=== PATIENT | female | born 1940 | race Hispanic/Latino ===

== ENCOUNTER 2018-08-26 15:41 | Inpatient (IN) | payer MEDICARE, MEDICAID ==
[2018-08-26 15:58] VITALS: BMI 20.2
--- NOTE | 2018-08-26 16:50 | ED PDOC ---
Arrival/HPI - General Chief Complaint: Lower Extremity Problem/Injury Time Seen by Provider: 08/26/18 16:11 - History of Present Illness Narrative History of Present Illness (Text): 78 y/o F c PMHx CHF, COPD p/w bilateral pedal edema x 1 week. States no chest pain, has dyspnea, but has baseline dyspnea due to COPD as well. Denies fever, chills, body aches, vomiting, diarrhea. PMD Nigel Robledo Past Medical History - Cardiac Hx Hypertension: Yes Hx Pacemaker: Yes - Pulmonary Hx Chronic Obstructive Pulmonary Disease (COPD): Yes Hx Pneumonia: Yes - Psychiatric Hx Substance Use: No - Anesthesia Hx Anesthesia: No Hx Anesthesia Reactions: No Hx Malignant Hyperthermia: No Family/Social History Family/Social History: No Known Family HX Smoking Status: Never Smoked Hx Alcohol Use: No Hx Substance Use: No Allergies/Home Meds Allergies/Adverse Reactions: Allergies No Known Allergies Allergy (Verified 08/26/18 15:54) Review of Systems - Physician Review All systems were reviewed & negative as marked: Yes - Review of Systems Constitutional: absent: Fevers Cardiovascular: absent: Chest Pain Physical Exam - Physical Exam Narrative Physical Exam (Text): Gen: NAD Head: NC/AT Eyes: PERRL ENT: MMM Neck: Supple. Chest: No tenderness CV: Regular rate Lungs: Bibasilar crackles Abd: Soft, NT Back: No CVA tenderness Extremities: Pitting edema of bilateral lower legs Skin: No rash Neuro: Alert, no focal deficit Vital Signs Temp Pulse Resp BP Pulse Ox 08/26/18 15:56 97.9 F 116 H 20 120/73 100 Medical Decision Making ED Course and Treatment: EKG 113 bpm, ventricularly paced rhythm. IMPRESSION: New right pleural effusion, otherwise no significant abnormalities/interval changes. Patient also with coaguloatphy, states had high INR last week at Dr. Manning's office, attempted to stop dose and resume but today, continues to be high. No bleeding. Dr. Manning accepts patient to her service. Consult placed for Dr. Robledo. - RAD Interpretation Radiology Orders: 08/26/18 16:38 CHEST PORTABLE [RAD] Stat Disposition/Present on Arrival - Present on Arrival Any Indicators Present on Arrival: No History of DVT/PE: No History of Uncontrolled Diabetes: No Urinary Catheter: No History of Decub. Ulcer: No History Surgical Site Infection Following: None - Disposition Have Diagnosis and Disposition been Completed?: Yes Diagnosis: CHF exacerbation, Coagulopathy Disposition: HOSPITALIZED Disposition Time: 18:42 Patient Plan: Admission, Telemetry Condition: GUARDED Discharge Instructions (ExitCare): Heart Failure (ED) Forms: [employer] ([place])
[2018-08-26 17:22] LABS: GRAN # 7.07 (1.4-6.5); GRAN % 88.6 % (50.0-68.0); HEMOGLOBIN 10.9 g/dL (12.0-16.0); LYMPH # 0.6 (1.2-3.4); LYMPH % 7.6 % (22.0-35.0); MEAN CELL VOLUME 98.7 fl (80.0-105.0); MEAN CORPUSCULAR HEMOGLOBIN 29.1 pg (25.0-35.0); MEAN CORPUSCULAR HGB CONC 29.5 g/dl (31.0-37.0); MEAN PLATELET VOLUME 10.1 fl (7.0-11.0); MONO # 0.3 (0.1-0.6); MONO % 3.8 % (1.0-6.0); RBC 3.74 10^6/uL (3.5-6.1)
[2018-08-26 17:31] LABS: PARTIAL THROMBOPLASTIN TIME 44.9 Seconds (25.1-36.5)
--- NOTE | 2018-08-26 17:35 | RAD ---
Date of service: 08/26/2018 HISTORY: pedal edema COMPARISON: 11/25/2017 FINDINGS: LUNGS: No active pulmonary disease. PLEURA: Small right pleural effusion a new finding compared to the prior study. CARDIOVASCULAR: No radiographic findings to suggest acute or significant cardiovascular disease. Position/ configuration of pacemaker device: Satisfactory. Atherosclerotic calcifications identified primarily aortic arch. OSSEOUS STRUCTURES: Stable thoracolumbar scoliosis. VISUALIZED UPPER ABDOMEN: Normal. OTHER FINDINGS: None. IMPRESSION: New right pleural effusion, otherwise no significant abnormalities/interval changes.
[2018-08-26 17:37] LABS: INR 6.34; PROTHROMBIN TIME 75.1 SECONDS (9.4-12.5)
[2018-08-26 17:54] LABS: ALB/GLOB RATIO 1.1 (1.1-1.8); ALBUMIN 3.6 g/dL (3.0-4.8); CALCIUM 8.9 mg/dL (8.4-10.5)
[2018-08-26 17:56] LABS: TROPONIN I 0.07 ng/mL
[2018-08-26] MEDS ORDERED: Albuterol-Ipratrop 3 mg / 0.5 (3 ml) UD IH PRN (20:10)
--- NOTE | 2018-08-26 21:05 | HP ---
DATE OF EXAM: 08/26/2018 HISTORY OF PRESENT ILLNESS: The patient is 78-year-old known to me from office practice. Call Dr. Robledo because of increasing shortness of breath and leg swelling who advised her to come to emergency room. Denies any fever or chills. The patient was seen in office 2 to 3 weeks ago for regular checkup for her Coumadin level check. I gave her short course of steroid. The patient stated, it did not improve with that and she continued to have shortness of breath, so she came to emergency room for further evaluation. ALLERGIES: SHE IS NOT ALLERGIC TO ANY MEDICATION. MEDICATION AT HOME: She is on losartan 100 mg daily, Coumadin 5 mg daily, Lasix 40 mg daily. She is intermittently on K-Dur. PAST MEDICAL HISTORY: She has significant past medical history of chronic atrial fibrillation, on anticoagulant, hypertension, and hyperlipidemia. SOCIAL HISTORY: She used to be heavy smoker, but quit 2 to 3 years ago. She lives alone. Does not drink alcohol. PHYSICAL EXAMINATION: GENERAL: On examination, she has mild shortness of breath. VITAL SIGNS: She is afebrile, pulse 160, respiration 20, blood pressure 120/73. CARDIOPULMONARY: S1 and S2 audible. LUNGS: Bilateral diffusely decreased breath sounds. ABDOMEN: Soft and nontender. No rebound. No guarding. NEUROLOGIC: The patient is awake, alert, oriented, communicative. LABORATORY DATA: WBC is 8, hemoglobin 10.9, hematocrit 36.9, platelet 300. PT 75.1, INR 6.34. Chemistry, sodium 137, calcium 5.1, chloride 94, CO2 of 39, BUN 74, creatinine 1.1, blood sugar of 122 and BNP is 15,700. X-ray of the chest shows right pleural effusion, otherwise no significant abnormality. ASSESSMENT: 1. Chronic obstructive pulmonary disease exacerbation. 2. Hypertension. 3. Mild renal insufficiency. 4. Asthmatic bronchitis. PLAN: The patient will be admitted on telemetry. We will start her on IV diuretics. We will hold Coumadin. Monitored PT/INR. Start on IV steroid, nebulizer treatment. We will follow up the patient. Christa Manning MD
[2018-08-26] MEDS: MethylPREDNISolone 40 mg Vial IV SCH (21:32)
[2018-08-27] MEDS: Levalbuterol 1.25 MG/3 ML Inhal Soln UD IH SCH ×4 (01:29→19:22)
[2018-08-27 06:31] LABS: GRAN # 5.26 (1.4-6.5); GRAN % 91.7 % (50.0-68.0); HEMOGLOBIN 10.8 g/dL (12.0-16.0); LYMPH # 0.4 (1.2-3.4); LYMPH % 6.6 % (22.0-35.0); MEAN CELL VOLUME 98.7 fl (80.0-105.0); MEAN CORPUSCULAR HEMOGLOBIN 28.8 pg (25.0-35.0); MEAN CORPUSCULAR HGB CONC 29.2 g/dl (31.0-37.0); MONO # 0.1 (0.1-0.6); MONO % 1.7 % (1.0-6.0); PLATELET COUNT 304 10^3/uL (120.0-450.0); RBC 3.75 10^6/uL (3.5-6.1); RED CELL DISTRIBUTION WIDTH 15.1 % (11.5-14.5); WHITE BLOOD COUNT 5.7 10^3/uL (4.5-11.0)
[2018-08-27] MEDS: MethylPREDNISolone 40 mg Vial IV SCH ×2 (06:35→23:51)
[2018-08-27] MEDS: Pantoprazole 40 mg EC Tab PO SCH (06:36)
[2018-08-27 06:40] LABS: PROTHROMBIN TIME 57.2 SECONDS (9.4-12.5)
[2018-08-27 06:42] LABS: INR 4.82
[2018-08-27 07:23] LABS: ALB/GLOB RATIO 1.1 (1.1-1.8); ALBUMIN 3.5 g/dL (3.0-4.8); CALCIUM 8.9 mg/dL (8.4-10.5)
[2018-08-27 08:08] LABS: LYMPHOCYTE 3 % (22.0-35.0); MONOCYTE 3 % (1.0-6.0); NEUTROPHIL 94 % (50.0-70.0); NUCLEATED RED BLOOD CELL 1 %
[2018-08-27 08:09] LABS: HYPOCHROMIA SLIGHT; PLATELET ESTIMATE NORMAL (NORMAL)
--- NOTE | 2018-08-27 09:55 | CARD ---
APPROVED REPORT Date of service: 08/26/2018 EKG Measurement Heart [id number] <Conclusion> Electronic ventricular pacemaker
--- NOTE | 2018-08-27 14:27 | PN ---
DATE: 08/27/2018 SUBJECTIVE: The patient is 78-year-old. The patient was seen and examined, sitting in chair and seems to be comfortable, mild shortness of breath. No nausea or vomiting. Still has cough. PHYSICAL EXAMINATION: VITAL SIGNS: She is afebrile. Pulse 116, respirations 20, blood pressure 143/75. LUNGS: Bilateral diffusely decreased breath sounds. rhonchi. HEART: S1 and S2 audible. ABDOMEN: Soft and nontender. No rebound. No guarding. NEUROLOGIC: The patient is awake, alert, oriented, communicative. LABORATORY EXAM: WBC is 5.7, hemoglobin 10.8, hematocrit 37 and platelet 304. PT 57.2, INR 4.82. Chemistry: Sodium 138, potassium 5, chloride 92, CO2 of 41, BUN 69, creatinine 1.1, blood sugar of 143. ASSESSMENT: 1. Chronic obstructive pulmonary disease exacerbation. 2. Pulmonary hypertension. PLAN: The plan is, we will hold Coumadin today. We will continue IV diuretics and continue IV steroid and cutdown prednisone to 40 every 12 hours and we will reevaluate the patient in a.m. and request for physical therapy . Christa Manning MD
--- NOTE | 2018-08-27 15:02 | CARD ---
APPROVED REPORT Date of service: 08/27/2018 EXAM: Two-dimensional and M-mode echocardiogram with Doppler and color Doppler. INDICATION Dyspnea Congestive Heart Failure 2D DIMENSIONS Left Atrium (2D)4.1 (1.6-4.0cm)IVSd1.3 (0.7-1.1cm) LVDd3.1 (3.9-5.9cm)PWd1.2 (0.7-1.1cm) LVDs2.5 (2.5-4.0cm)FS (%) 19.7 % LVEF (%)41.8 (>50%) M-Mode DIMENSIONS Aortic Root2.20 (2.2-3.7cm)Aortic Cusp Exc.1.30 (1.5-2.0cm) Aortic Valve AoV Peak Qvrkhazo297.0cm/Lesly Peak GR.15mmHg Mitral Valve E/A ratio0.0 TDI E/Lateral E'0.0E/Medial E'0.0 Tricuspid Valve TR Peak [id number] [id number] Peak Gr.27mmHg [id number] LEFT VENTRICLE The left ventricle is normal size. There is mild concentric left ventricular hypertrophy. The systolic function is mildly to moderately impaired. Septal hypokinesis. RIGHT VENTRICLE The right ventricle is normal size. The right ventricular systolic function is normal. There is a pacemaker lead in the right ventricle. ATRIA The left atrium is mildly dilated. The right atrium is mildly dilated. The interatrial septum is intact with no evidence for an atrial septal defect. AORTIC VALVE The aortic valve is normal in structure. No aortic regurgitation is present. There is no aortic valvular stenosis. MITRAL VALVE The mitral valve is mildly thickened. Mitral regurgitation is moderate. TRICUSPID VALVE The tricuspid valve is normal in structure. There is moderate tricuspid regurgitation. PULMONIC VALVE The pulmonary valve is normal in structure. GREAT VESSELS The aortic root is normal in size. The IVC is normal in size and collapses >50% with inspiration. PERICARDIAL EFFUSION There is no pleural effusion. There is no pericardial effusion. <Conclusion> Mild biatrial enlargment. Normal LV size. Mild to moderately reduced LV systolic function with septal hypokinesis. Moderate MR. Moderate TR.
--- NOTE | 2018-08-27 15:35 | CP.PCM.APN ---
Subjective - Date & Time of Evaluation Date of Evaluation: 08/27/18 Time of Evaluation: 09:00 - Subjective Subjective: pt seen and examined at bedside pt reports feeling better since admission Review of Systems - Respiratory Respiratory: Dyspnea on Exertion Objective - Vital Signs/Intake and Output Vital Signs (last 24 hours): Temp Pulse Resp BP Pulse Ox 98.4 F 104 H 14 113/67 97 08/27/18 12:00 08/27/18 12:00 08/27/18 12:00 08/27/18 12:00 08/26/18 21:19 - Medications Medications: Current Medications Acetaminophen (Tylenol 325mg Tab) 650 mg PO Q6H PRN PRN Reason: Fever >100.4 F Albuterol/Ipratropium (Duoneb 3 Mg/0.5 Mg (3 Ml) Ud) 3 ml IH Q2H PRN PRN Reason: Shortness of Breath Aspirin (Ecotrin) 81 mg PO 0800 [facility] Last Admin: 08/27/18 09:10 Dose: 81 mg Furosemide (Lasix) 40 mg IVP DAILY [facility] Last Admin: 08/27/18 11:27 Dose: 40 mg Levalbuterol HCl (Xopenex) 1.25 mg IH [id number] [facility] Last Admin: 08/27/18 13:43 Dose: 1.25 mg Methylprednisolone (Solu-Medrol) 40 mg IV Q12 [facility] Ondansetron HCl (Zofran Inj) 4 mg IVP Q6H PRN PRN Reason: Nausea/Vomiting Pantoprazole Sodium (Protonix Ec Tab) 40 mg PO 0630 [facility] Last Admin: 08/27/18 06:36 Dose: 40 mg - Labs Labs: 08/27/18 06:00 08/27/18 06:00 PT 57.2 SECONDS (9.4-12.5) H 08/27/18 06:00 INR 4.82 H* 08/27/18 06:00 APTT 44.9 Seconds (25.1-36.5) H 08/26/18 17:13 - Constitutional Appears: Non-toxic - Eye Exam Eye Exam: Normal appearance - Respiratory Exam Respiratory Exam: Decreased Breath Sounds, NORMAL BREATHING PATTERN - Cardiovascular Exam Cardiovascular Exam: +S1, +S2 - GI/Abdominal Exam GI & Abdominal Exam: Soft - Extremities Exam Extremities Exam: Pedal Edema Assessment and Plan - Assessment and Plan (Free Text) Plan: ITS Impressions Chest X-Ray 08/26/18 16:38 IMPRESSION: New right pleural effusion, otherwise no significant abnormalities/interval changes. 78 yr old with pmh sig for cfh, copd, afib admitted for c/o worsening soband pedal edema found to have acute chf exacerbaton with bnp 15,700, copd exacerbation now undergoing cardiology eval and treatment. copd- iv steroids, inhalers pul htn -iv lasix, echo noted EF 41%, septal hypokenesis , biatrail enlargement afib- on telemetry , inr supratherapeutic, monitor h/h , stol for OB will continue to follow BPCI/TIC - BPCIA/TIC Educated pt/family on BPCIA/CIR/Med to Bed Programs: Yes Flyers given, including [facility] Beneficiary letter: Yes Pt/family verbalized understanding & agreed to program: Yes
[2018-08-28] MEDS: Levalbuterol 1.25 MG/3 ML Inhal Soln UD IH SCH ×3 (01:01→13:02)
--- NOTE | 2018-08-28 03:29 | CON ---
DATE: 08/27/2018 REQUESTING PHYSICIAN: Christa Manning MD REASON FOR CONSULTATION: Dyspnea and edema. HISTORY OF PRESENT ILLNESS: This is a 78-year-old woman, known to us from prior admissions, with a history of conduction system disease, status post permanent pacemaker implant, as well as chronic atrial fibrillation and hypertension, who presents to the emergency room with increasing dyspnea and leg edema. She was recently given a short course of steroids, however, she states her symptoms did not improve. She presents to emergency room and admitted. She has noticed increasing exertional dyspnea over the past several weeks and recent leg edema. She denies any chest pain. PAST MEDICAL HISTORY: Notable for the problems mentioned above. She does have a history of hypertension and hyperlipidemia and a history of remote tobacco abuse. MEDICATIONS: Her current medications include DuoNeb inhaler, Ecotrin, Lasix 40 mg daily, Protonix, Solu-Medrol 40 mg every 12 hours, Xopenex, and Zofran. ALLERGIES: NONE. SOCIAL HISTORY: She quit smoking several years ago. Prior to that, she was smoking more than a pack per day for many years. She denies alcohol use. FAMILY HISTORY: Both parents are from age-related illness. REVIEW OF SYSTEMS: A 10-point review of systems is notable only for the problems mentioned above. PHYSICAL EXAMINATION: GENERAL: She is an anxious-appearing elderly woman. VITAL SIGNS: Her blood pressure is 112/70 with a pulse of 120, underlying atrial flutter and intermittent ventricular pacing; respirations are 16. She is afebrile. HEENT: Normocephalic, atraumatic. NECK: Supple, with no JVD noted. CHEST: Bilateral rhonchi heard with diminished breath sounds at the bases. HEART: PMI in normal position with a systolic murmur notable at the left sternal border and at the apex. ABDOMEN: Soft, nontender with normoactive bowel sounds. EXTREMITIES: 1 to 2+ leg edema. DIAGNOSTIC DATA: A chest x-ray, permanent pacemaker system is in place. Cardiac silhouette appears normal. Right pleural effusion is present. An electrocardiogram reveals electronic ventricular pacing. White count is 5.7, hemoglobin/hematocrit of 10.8 and 37 with a platelet count of 304,000. Initial INR was 6.34, repeat is 4.82; potassium 5; BUN/creatinine are 69 and 1.1. BNP 15,700. CK 34. Troponin 0.07, repeat is 0.08. IMPRESSION: 1. Decompensated congestive heart failure with evidence of right-sided failure and a right pleural effusion. 2. Chronic obstructive pulmonary disease. 3. Prerenal azotemia. 4. History of hypertension. 5. Conduction system disease, status post permanent pacemaker implant. 6. Underlying atrial dysrhythmia. 7. Mitral and tricuspid regurgitation. RECOMMENDATIONS: IV Lasix should be continued for now. An echocardiogram will be obtained to assess her left ventricular size and function and evaluate her valvular abnormalities. Followup labs will be planned. IV diuresis will continue, sodium restriction is advised. Bronchodilator therapy should continue, Coumadin will be held pending her return of INR to a therapeutic range. Further recommendations will be made based upon her clinical course and results of the above findings. Thank you for this consultation. We will be happy to follow along as needed. Toby Osorio MD
[2018-08-28] MEDS: Pantoprazole 40 mg EC Tab PO SCH (06:14)
[2018-08-28 07:02] LABS: INR 3.18; PROTHROMBIN TIME 37.4 SECONDS (9.4-12.5)
[2018-08-28 07:08] LABS: BLOOD UREA NITROGEN 72 mg/dL (7-21); CALCIUM 8.6 mg/dL (8.4-10.5); GFR NON-AFRICAN AMERICAN 54
[2018-08-28] MEDS: MethylPREDNISolone 40 mg Vial IV SCH ×2 (11:16→21:45)
--- NOTE | 2018-08-28 17:33 | PN ---
DATE: 08/28/2018 SUBJECTIVE: The patient is seen lying in bed on telemetry. She feels somewhat better. Edema is somewhat improved. INR remains elevated. MEDICATIONS: Her current medications include DuoNeb inhaler, Ecotrin, Lasix 40 mg IV daily, Protonix, Solu-Medrol 40 mg every 12 hours. and Xopenex. OBJECTIVE: GENERAL: She is an elderly woman who appears comfortable at rest. VITAL SIGNS: Blood pressure 118/66 with a pulse of 110 and with ventricular pacing, underlying atrial fibrillation, respirations are 16. She is afebrile. HEENT: No JVD. CHEST: Bilateral scattered rhonchi. HEART: PMI in normal position and a systolic murmur is noted at the lower left sternal border and apex. ABDOMEN: Soft and nontender with normoactive bowel sounds. EXTREMITIES: 1+ leg edema. DIAGNOSTIC DATA Potassium 5.1, BUN and creatinine are 72 and 1. INR is 3.18. Echocardiogram revealed mild biatrial enlargement, normal LV size. LV systolic function is mild to moderately reduced with septal hypokinesis and moderate mitral and tricuspid regurgitation are present. IMPRESSION: 1. Decompensated congestive heart failure, predominantly right-sided. 2. Evidence of mild to moderate left ventricular systolic dysfunction. 3. Chronic obstructive pulmonary disease. 4. Prerenal azotemia. 5. Status post permanent pacemaker implant for conduction system disease. 6. Underlying atrial fibrillation. 7. Moderate mitral and tricuspid regurgitation. RECOMMENDATIONS: IV Lasix will be continued for now. Coumadin is on hold pending return to a therapeutic INR. Her old records will be reviewed with respect to prior left ventricular function. We will follow and make further recommendations as appropriate. Toby Osorio MD
--- NOTE | 2018-08-28 21:50 | PN ---
DATE: 08/28/2018 SUBJECTIVE: The patient is a 78-year-old, who was admitted, seen and examined, seems to be little better. PHYSICAL EXAMINATION: VITAL SIGNS: She is afebrile. Pulse 107, respirations 20, and blood pressure 119/61. LUNGS: Bilateral fair airflow. Few expiratory rhonchi posteriorly. Decreased breath sounds in upper lung region. HEART: S1 and S2 audible. ABDOMEN: Soft and nontender. No rebound. No guarding. NEUROLOGIC: The patient is awake, alert, oriented, communicative. Moves all extremities. EXTREMITIES: Bilateral legs +1 edema. LABORATORY DATA: PT 37.4, INR 3.18. Chemistry: Sodium 137, potassium 5.1, chloride 92, CO2 of 41, BUN 72, creatinine 1, and blood sugar 130. ASSESSMENT: 1. Chronic obstructive pulmonary disease exacerbation. 2. Congestive heart failure, acute on chronic, systolic. 3. Right pleural effusion. 4. Hyperkalemia. 5. Chronic atrial fibrillation. 6. Mitral and tricuspid regurgitation. 7. Supratherapeutic INR. PLAN: We will hold Coumadin for one more day. We will follow PT and INR in a.m. Followup electrolyte in a.m. Continue on IV Lasix. Continue her Protonix. Her wheezing have improved, so I will decrease her Solu-Medrol to 30 mg every 12 hours. We will reevaluate the patient in a.m. I will request for TCU evaluation and will follow up the patient. Christa Manning MD
[2018-08-29] MEDS: Pantoprazole 40 mg EC Tab PO SCH (05:29)
[2018-08-29] MEDS: Levalbuterol 1.25 MG/3 ML Inhal Soln UD IH SCH ×3 (07:07→20:09)
[2018-08-29 07:32] LABS: INR 1.98; PROTHROMBIN TIME 23.1 SECONDS (9.4-12.5)
[2018-08-29 07:42] LABS: BLOOD UREA NITROGEN 72 mg/dL (7-21); CALCIUM 8.5 mg/dL (8.4-10.5); GFR NON-AFRICAN AMERICAN 54
[2018-08-29] MEDS: MethylPREDNISolone 40 mg Vial IV SCH ×2 (09:52→22:09)
--- NOTE | 2018-08-29 15:56 | PN ---
DATE: 08/29/2018 SUBJECTIVE: The patient is a 78-year-old, seen and examined, doing better, shortness of breath is improving. PHYSICAL EXAMINATION: VITAL SIGNS: She is afebrile, pulse 102, respirations 20 and blood pressure . LUNGS: Bilateral fair airflow. No rhonchi or crackle. HEART: S1 and S2 audible. ABDOMEN: Soft and nontender. No rebound. No guarding. NEUROLOGICAL: The patient is awake, alert, oriented and communicative. LABORATORY DATA: PT 23.1 and INR 1.98. Chemistry; sodium 138, potassium 5.1, chloride 91, CO2 of 41, BUN 72, creatinine 1.0 and blood sugar of 124. ASSESSMENT: 1. Chronic obstructive pulmonary disease exacerbation. 2. Congestive heart failure. 3. Chronic atrial fibrillation. 4. Deconditioning and difficulty walking. 5. Hyperlipidemia. 6. Hyperkalemia. PLAN: We will slowly taper down her steroid. We will start her on Coumadin 5 mg today. I will order for PT/INR in the a.m. I request for TCU evaluation. If accepted, will be transferred to TCU. Christa Manning MD
[2018-08-29 17:59] VITALS: RESP 19; O2SAT 99
[2018-08-30] MEDS: Levalbuterol 1.25 MG/3 ML Inhal Soln UD IH SCH ×4 (02:25→13:51)
[2018-08-30] MEDS: Pantoprazole 40 mg EC Tab PO SCH (05:33)
[2018-08-30 06:56] LABS: INR 1.66; PROTHROMBIN TIME 19.3 SECONDS (9.4-12.5)
[2018-08-30 08:04] LABS: CALCIUM 8.7 mg/dL (8.4-10.5)
[2018-08-30] MEDS ORDERED: Sod Polystyrene Sulf 15 gm/60 ml Susp PO ONE (08:11)
[2018-08-30] MEDS: MethylPREDNISolone 40 mg Vial IV SCH (10:54)
[2018-08-30] MEDS ORDERED: MethylPREDNISolone 40 mg Vial IV SCH (11:59)
[2018-08-30 12:21] VITALS: BP 119/73; PULSE 115; TEMP 97.3
--- NOTE | 2018-08-30 13:46 | PN ---
DATE: 08/30/2018 SUBJECTIVE: The patient is sitting in a chair on telemetry. She is frustrated and would like to go home. Her dyspnea is improved. She continues to have some ankle edema. She refuses to wear compression stockings. MEDICATIONS: Her current medications include warfarin, DuoNeb inhaler, Ecotrin, Lasix 40 mg IV daily, Protonix, Solu-Medrol and Xopenex. OBJECTIVE: GENERAL: She is an elderly woman who appears comfortable at rest. VITAL SIGNS: Blood pressure is 110/60 with pulse of 80 and with ventricular pacing, respirations 16. She is afebrile. HEENT: No JVD. CHEST: A few scattered rhonchi heard. HEART: PMI displaced laterally. Systolic murmur noted at left sternal border. ABDOMEN: Soft, nontender, normoactive bowel sounds. EXTREMITIES: 1+ ankle edema. DIAGNOSTIC DATA: Potassium 5.6, BUN and creatinine 83 and 1.1. INR 1.66. IMPRESSION: 1. Decompensated congestive heart failure, [id number] with combined systolic and diastolic, predominantly right-sided. 2. [id number] left ventricle systolic dysfunction. 3. Chronic obstructive pulmonary disease. 4. Worsening prerenal azotemia. 5. Status post permanent pacemaker implant. 6. Underlying atrial fibrillation. 7. Moderate mitral and tricuspid regurgitation. RECOMMENDATIONS: IV Lasix will continue for now. I agree with resumption of Coumadin therapy at this time. Sodium restriction is advised. Possible subacute rehabilitation would be beneficial for her. We will be happy to follow along as needed. Toby Osorio MD
[2018-08-30] MEDS ORDERED: Pantoprazole 40 mg EC Tab PO ONE (20:24)
--- NOTE | 2018-08-31 08:14 | DS ---
HISTORY OF PRESENT ILLNESS: The patient is 78-year-old, seen and examined, sitting in chair, seemed to be comfortable, no chest pain, no shortness of breath, was brought in because of the leg swelling and increasing shortness of breath. She was found to be in CHF and COPD, so she was diuresed. She was given IV steroid. Doing well, was found to be hyperkalemic today, just started Kayexalate. The patient is accepting TCU, will be transferred to TCU today for rehab and close monitoring of her Coumadin level. PHYSICAL EXAMINATION: GENERAL: Today, she is awake, alert, and oriented, communicative. VITAL SIGNS: She is afebrile. Pulse 82, respirations 19, and blood pressure 118/80. LUNGS: Bilateral diffusely decreased breath sounds. rhonchi. HEART: S1, S2 audible. ABDOMEN: Soft, nontender. No rebound. No guarding. NEUROLOGIC: The patient is awake, alert, and oriented, communicative. LABORATORY DATA: Her PT is 19.3, INR 1.66. Chemistry: Sodium 138, potassium 5.6, chloride 92, CO2 40, BUN 83, creatinine 1.1, blood sugar of 123. ASSESSMENT: 1. Hyperkalemia. The patient just received a dose of Kayexalate. We will monitor her potassium level. 2. Chronic obstructive pulmonary exacerbation. 3. Congestive heart failure, acute on chronic, systolic. 4. Pulmonary hypertension. 5. Renal insufficiency. 6. Deconditioning. 7. Kyphoscoliosis. 8. Prerenal azotemia. PLAN: I will cut down Lasix for a few days. We will monitor chemistry in a.m. She has no active wheezing. I will cut down steroid every 12. The patient will be transferred to TCU today. Christa Manning MD
== END 2018-08-30 16:30 | DRG 190 ==
LOC: ED 15:41 → ERH 18:39 → 2RNO 21:46
PROVIDERS: ADMIT Internal Medicine; ATTEND Internal Medicine
DX: J44.1 Chronic obstructive pulmonary disease with (acute) exacerbation (principal); I50.43 Acute on chronic combined systolic (congestive) and diastolic (congestive) heart failure; D68.9 Coagulation defect, unspecified; I11.0 Hypertensive heart disease with heart failure; I48.2 Chronic atrial fibrillation; E78.5 Hyperlipidemia, unspecified; Z79.01 Long term (current) use of anticoagulants; Z87.01 Personal history of pneumonia (recurrent); Z87.891 Personal history of nicotine dependence; Z95.0 Presence of cardiac pacemaker; N28.9 Disorder of kidney and ureter, unspecified; I08.1 Rheumatic disorders of both mitral and tricuspid valves; R26.2 Difficulty in walking, not elsewhere classified; E87.5 Hyperkalemia; I27.20 Pulmonary hypertension, unspecified; M41.9 Scoliosis, unspecified; I45.9 Conduction disorder, unspecified; I49.8 Other specified cardiac arrhythmias

== ENCOUNTER 2018-08-30 16:30 | Inpatient (IN) | payer OTHER, MEDICAID ==
[2018-08-30 17:44] VITALS: BMI 20.5
[2018-08-30] MEDS ORDERED: Albuterol-Ipratrop 3 mg / 0.5 (3 ml) UD IH PRN (17:47)
[2018-08-30] MEDS ORDERED: Influenza Vaccine 60 mcg/0.5 mL SYR (4YR UP) IM ONE (20:11)
[2018-08-30] MEDS ORDERED: Pneumococcal 23-Valent Vaccine IM ONE (20:11)
[2018-08-30] MEDS: Levalbuterol 1.25 MG/3 ML Inhal Soln UD IH SCH (20:23)
[2018-08-30] MEDS: MethylPREDNISolone 40 mg Vial IVP SCH (22:41)
[2018-08-31] MEDS: Levalbuterol 1.25 MG/3 ML Inhal Soln UD IH SCH ×4 (01:45→20:13)
[2018-08-31] MEDS: Pantoprazole 40 mg EC Tab PO SCH (05:36)
[2018-08-31] MEDS: MethylPREDNISolone 40 mg Vial IVP SCH ×2 (05:37→17:27)
[2018-08-31 07:35] LABS: INR 2.16; PROTHROMBIN TIME 25.2 SECONDS (9.4-12.5)
[2018-08-31 07:51] LABS: ALB/GLOB RATIO 1.1 (1.1-1.8); ALBUMIN 3.7 g/dL (3.0-4.8); ALT/SGPT 19 U/L (7-56); AST/SGOT 23 U/L (14-36); BLOOD UREA NITROGEN 77 mg/dL (7-21); CALCIUM 8.7 mg/dL (8.4-10.5); GFR NON-AFRICAN AMERICAN 54
--- NOTE | 2018-08-31 21:36 | HP ---
DATE OF EXAM: 08/31/2018 HISTORY OF PRESENT ILLNESS: The patient is a 78-year-old who started to have increasing shortness of breath and increasing leg swelling, so she called Dr. Robledo who advised her to come to emergency room. She was found to be in mild CHF and COPD exacerbation, so she was given IV steroid, IV diuretic, nebulizer treatment, and steroid and started to do well. The patient was deconditioned, has exertional hypoxia and shortness of breath, so she was transferred to TCU for further management and physical therapy. PAST MEDICAL HISTORY: Significant for: 1. COPD. 2. Hypertension. 3. Congestive heart failure. 4. Chronic AFib. 5. Degenerative disk disease. ALLERGIES: SHE IS NOT ALLERGIC TO ANY MEDICATION. MEDICATIONS AT HOME: She is on Coumadin 6 mg daily. She is on Lasix 20 mg daily, aspirin 81 daily, prednisone 20 mg twice a day, and Protonix 40 daily. SOCIAL HISTORY: She lives by herself. She was heavy smoker up until 2 years ago. PHYSICAL EXAMINATION: GENERAL: She is awake, alert, oriented, and anxious. VITAL SIGNS: She is afebrile, pulse 72, respirations 18, and blood pressure 128/81. LUNGS: Bilateral fair airflow. No rhonchi or crackle. HEART: S1 and S2 audible. ABDOMEN: Soft and nontender. No rebound. No guarding. NEUROLOGIC: The patient is awake, alert, oriented, communicative, ambulatory, and gets short of breath on walking. ASSESSMENT: 1. Chronic obstructive pulmonary disease exacerbation. 2. Chronic atrial fibrillation. 3. Hypertension. 4. Hyperlipidemia. 5. Congestive heart failure, acute on chronic systolic resolved. PLAN: We will continue the patient on Coumadin [address] Allen for evaluation also and I will give her small dose of Xanax since the patient is very anxious that makes her more short of breath. We will reevaluate the patient in a.m. Christa Manning MD
[2018-09-01] MEDS: Levalbuterol 1.25 MG/3 ML Inhal Soln UD IH SCH ×4 (01:56→20:50)
[2018-09-01] MEDS: Pantoprazole 40 mg EC Tab PO SCH (06:10)
[2018-09-01] MEDS: MethylPREDNISolone 40 mg Vial IVP SCH ×2 (06:11→17:19)
[2018-09-01] MEDS: Budesonide 0.5 mg/2 ml Inhal Susp UD IH SCH ×2 (07:14→20:50)
--- NOTE | 2018-09-01 12:49 | CON ---
DATE: 09/01/2018 PULMONARY CONSULTATION REASON FOR PULMONARY CONSULTATION: Chronic obstructive pulmonary disease. REFERRING PHYSICIAN: Referring physician is Dr. Manning. HISTORY OF PRESENT ILLNESS: The patient is a 78-year-old female, with past medical history significant for chronic obstructive pulmonary disease, congestive heart failure, atrial fibrillation, hypertension, who presented initially - on 08/26/2018 - with a 1-week history of shortness of breath at rest and dyspnea on exertion. The patient also complained of bilateral leg swelling for the past week. Subsequent evaluation revealed acute congestive heart failure. The patient was thus admitted. The patient did very well on the acute care side. Input by Cardiology is noted. She was then transferred to the transitional unit for additional care/therapy. I am now asked to evaluate on this case for additional management/treatment. The patient is not short of breath at rest. She does have mild/less dyspnea on exertion. No history of cough or sputum production. No history of chest pain, coughing up of blood, or chest pain - made worse with deep respirations. There is no history of temperatures, chills or infectious exposure. There is no history of night sweats, weight loss or appetite change prior to the above events. No history of calf pains. No history of syncope or diaphoresis. No history of recent travel or trauma. REVIEW OF SYSTEMS: No history of nausea, vomiting, or diarrhea. No acute urinary symptoms. No new neurologic complaints. Rest of the review of systems is negative. ALLERGIES: NO KNOWN ALLERGIES. SOCIAL HISTORY: Positive for tobacco and negative for alcohol. FAMILY HISTORY: No inheritable diseases. MEDICATIONS: Home medications include Coumadin, DuoNebs, Zofran, Xopenex, Lasix, Ecotrin, prednisone, Protonix. PHYSICAL EXAMINATION: GENERAL: The patient appears comfortable this morning. She is not short of breath at rest. VITAL SIGNS: Temperature is 97.4, pulse 72, respirations 18, blood pressure 133/69. Oxygen saturation on nasal cannula is 100%. HEENT: Normocephalic, atraumatic. No JVD. CARDIOVASCULAR: Systolic ejection murmur at the lower left sternal border. Questionable S3 gallop. LUNGS: Decreased breath sounds at the bases with minimal crackles. Very minimal rhonchi. No wheezing. EXTREMITIES: Mild edema. No cyanosis. No clubbing. Calves are nontender to palpation. GASTROINTESTINAL: Abdomen is soft, nontender and nondistended. Bowel sounds are positive. SKIN: No acute rash. NEUROLOGIC: Exam limited at the present time. PERTINENT LABORATORY DATA: Chest x-ray was done on 08/26/2018 and reviewed. There are very small bilateral pleural effusions noted. CBC: White count 5.7K, hemoglobin 10.8, hematocrit 37, platelets of 304,000. Last complete metabolic profile: Potassium 5.3, chloride 91, carbon dioxide of 39, BUN 77. Rest of the metabolic profile is within normal limits. Initial B-type natriuretic peptide - 95290. Peak troponin 0.08. IMPRESSION: 1. Acute congestive heart failure. 2. Chronic obstructive pulmonary disease. 3. Chronic atrial fibrillation. 4. Mild anemia. PLAN: The patient presented to [facility] - originally on 08/26/2018 - with increasing shortness of breath at rest, dyspnea on exertion, and bilateral leg swelling for the previous week. The patient offers no other pulmonary symptoms. In the emergency room, the patient was diagnosed with acute congestive heart failure and thus admitted. As above, the patient did very well on the acute care side, and was transferred to the transitional unit for physical therapy. I did review the chest x-ray done. There are very small bilateral pleural effusions noted. I have also reviewed the laboratory data. An intermittent troponin, and a significant rise in the B-type natriuretic peptide is noted. The patient has been followed by Cardiology, and is currently on Lasix. On physical exam, there is only minimal bronchospasm noted. In addition, the oxygen saturation is 100% on nasal cannula. I will continue the current nebulizer treatments and low-dose intravenous steroids for now. I will also add inhaled Pulmicort - in this long-term COPD patient. Clinical status of the patient appears significantly improved - compared to the initial presentation. I will discuss the above with Dr. Manning. Thank you very much for this pulmonary consultation. Ramsey Selby MD [facility]
--- NOTE | 2018-09-01 23:42 | PN ---
DATE: 09/01/2018 SUBJECTIVE: The patient is 78 years old. Seen and examined. Lying in bed. Seems to be comfortable. No shortness of breath. Came back from therapy, seems to be tired. PHYSICAL EXAMINATION: VITAL SIGNS: The patient is afebrile, pulse 91, respirations 20, blood pressure 132/56. LUNGS: Bilateral fair air flow. No rhonchi or crackles. Few occasional expiratory rhonchi. Otherwise, she has diffuse decreased breath sounds on upper lung field. HEART: S1 and S2 audible. Irregular, rate control. ABDOMEN: Soft and nontender. No rebound. No guarding. NEUROLOGIC: The patient is awake, alert, and oriented. Communicative. LABORATORY EXAMINATION: There is no new lab available today. ASSESSMENT: 1. Chronic obstructive pulmonary disease exacerbation. 2. Congestive heart failure exacerbation. 3. Hypertension. 4. Chronic atrial fibrillation. 5. Hyperkalemia. 6. Supratherapeutic Coumadin level. PLAN: We will continue the patient on Lasix, aspirin, nebulizer treatment, Coumadin. Follow up PT and INR. Follow up CBC and CMP in a.m. Christa Manning MD
[2018-09-02] MEDS: Levalbuterol 1.25 MG/3 ML Inhal Soln UD IH SCH ×4 (01:58→20:47)
[2018-09-02] MEDS: Pantoprazole 40 mg EC Tab PO SCH (05:36)
[2018-09-02 07:03] LABS: EOS % 0.4 % (1.5-5.0); GRAN # 6.2 (1.4-6.5); GRAN % 80.1 % (50.0-68.0); HEMOGLOBIN 11.2 g/dL (12.0-16.0); LYMPH # 0.7 (1.2-3.4); LYMPH % 9.2 % (22.0-35.0); MEAN CELL VOLUME 97.4 fl (80.0-105.0); MEAN CORPUSCULAR HEMOGLOBIN 29.2 pg (25.0-35.0); MEAN CORPUSCULAR HGB CONC 29.9 g/dl (31.0-37.0); MEAN PLATELET VOLUME 9.7 fl (7.0-11.0); MONO # 0.8 (0.1-0.6); MONO % 10.3 % (1.0-6.0); RBC 3.84 10^6/uL (3.5-6.1); RED CELL DISTRIBUTION WIDTH 15.2 % (11.5-14.5); WHITE BLOOD COUNT 7.7 10^3/uL (4.5-11.0)
[2018-09-02] MEDS: Budesonide 0.5 mg/2 ml Inhal Susp UD IH SCH ×2 (07:20→20:46)
[2018-09-02 07:21] LABS: ALBUMIN 3.5 g/dL (3.0-4.8); ALT/SGPT 35 U/L (7-56); AST/SGOT 21 U/L (14-36); BLOOD UREA NITROGEN 63 mg/dL (7-21); CALCIUM 8.7 mg/dL (8.4-10.5); GFR NON-AFRICAN AMERICAN > 60
[2018-09-02 07:48] LABS: PROTHROMBIN TIME 47.4 SECONDS (9.4-12.5)
[2018-09-02 07:50] LABS: INR 4.01
--- NOTE | 2018-09-02 08:48 | PN ---
DATE: 09/02/2018 SUBJECTIVE: The patient appears comfortable this morning. She is not short of breath at rest. PHYSICAL EXAMINATION: VITAL SIGNS: Temperature is 98, pulse is 90, respiratory rate 18, blood pressure 119/68. Oxygen saturation on room air is 97%. HEENT: Normocephalic, atraumatic. No JVD. CARDIOVASCULAR: Systolic ejection murmur at the lower left sternal border. Questionable S3 gallop. LUNGS: Minimal crackles at the bases. Very minimal/less rhonchi. No wheezing. EXTREMITIES: Mild edema. No cyanosis, no clubbing. Calves are nontender to palpation. GASTROINTESTINAL: Abdomen is soft, nontender and nondistended. Bowel sounds are positive. SKIN: No acute rash. NEUROLOGIC: Exam limited at the present time. IMPRESSION: 1. Acute congestive heart failure. 2. Chronic obstructive pulmonary disease. 3. Chronic atrial fibrillation. 4. Mild anemia. PLAN: The patient appears very comfortable this morning. She is not short of breath at rest. She does state to feeling much better overall. On physical exam, no significant bronchospasm is noted. In addition, there is no significant alveolar-arterial gradient. I will continue the current nebulizer treatments and low-dose oral steroids (changed yesterday) for now. The patient also remains on intravenous Lasix. Clinical status of the patient is significantly improved - compared to the initial presentation. However, given the above, the future status/prognosis for this patient does remain somewhat guarded. I will discuss the above with Dr. Manning. Ramsey Selby MD [facility]
[2018-09-02 16:10] VITALS: PULSE 115; RESP 16; TEMP 98; O2SAT 96
--- NOTE | 2018-09-02 20:45 | PN ---
DATE: 09/02/2018 SUBJECTIVE: The patient is 78-year-old, seen and examined, sitting in chair, very uptight, anxious, wants to go home. She states she feels herself confined to one place. She is more ambulatory at home. PHYSICAL EXAMINATION: GENERAL: Otherwise, she is awake, alert, oriented, communicative. VITAL SIGNS: She is afebrile, pulse 86, respirations 16, blood pressure 105/58. LUNGS: Bilateral fair airflow. No rhonchi or crackle. HEART: S1 and S2 audible. ABDOMEN: Soft, nontender. No rebound. No guarding. NEUROLOGICAL: The patient is awake, alert, oriented, communicative. LABORATORY EXAMINATION: Her WBC is 7.7, hemoglobin 11.2, hematocrit 37.4, platelet of 280. PT 47.4, INR 4.01. Chemistry: Sodium 136, potassium 5.1, chloride 93, CO2 of 41, BUN 63, creatinine 0.8, blood sugar 79. ASSESSMENT: 1, Chronic obstructive pulmonary disease exacerbation. 2. Congestive heart failure exacerbation. 3. Hypertension. 4. Chronic atrial fibrillation. PLAN: We will follow up PT/INR in a.m., and the patient wants to be discharged in a.m. Christa Manning MD
[2018-09-03] MEDS: Levalbuterol 1.25 MG/3 ML Inhal Soln UD IH SCH ×3 (02:00→13:18)
[2018-09-03 05:46] VITALS: BP 122/71
[2018-09-03] MEDS: Budesonide 0.5 mg/2 ml Inhal Susp UD IH SCH (07:10)
--- NOTE | 2018-09-03 10:32 | PN ---
DATE: 09/03/2018 SUBJECTIVE: The patient appears very comfortable this morning. She is not short of breath at rest. PHYSICAL EXAMINATION: VITAL SIGNS: Temperature 98, pulse this morning is 88, respiratory rate 18, blood pressure 122/71. Oxygen saturation on room air is 96%. HEENT: Normocephalic, atraumatic. NECK: No JVD. CARDIOVASCULAR: Systolic ejection murmur at the lower left sternal border. Questionable S3 gallop. LUNGS: Very minimal crackles at the bases. Very minimal rhonchi. No wheezing. EXTREMITIES: Mild edema. No cyanosis. No clubbing. Calves are nontender to palpation. GI: Abdomen is soft, nontender and nondistended. Bowel sounds are positive. SKIN: No acute rash. NEUROLOGIC: Exam limited at the present time. IMPRESSION: 1. Acute congestive heart failure. 2. Chronic obstructive pulmonary disease. 3. Chronic atrial fibrillation. 4. Mild anemia. PLAN: The patient appears very comfortable this morning. She is not short of breath at rest. She does state to feeling much better overall. On physical exam, her bronchospasm continues to resolve. In addition, the alveolar-arterial gradient also continues to resolve. I would continue with the current nebulizer treatments and low-dose oral steroids for now. The patient also remains on intravenous Lasix. Clinical status of the patient is significantly improved - compared to the initial presentation. However, given the above, the future status/prognosis for this patient does remain guarded. I will discuss the above with with the attending physician. Ramsey Selby MD [facility]
[2018-09-03 11:36] LABS: INR 2.52; PROTHROMBIN TIME 29.3 SECONDS (9.4-12.5)
--- NOTE | 2018-09-03 21:16 | DS ---
HISTORY OF PRESENT ILLNESS: The patient is a 78-year-old, seen and examined. The patient initially came in with shortness of breath, leg edema. She was diuresed. She has been on nebulizer treatment and IV steroids. Doing well. PHYSICAL EXAMINATION: GENERAL: The patient is awake and was transferred to TCU for rehab. The patient states she was doing well. She feels confined. She feels more anxious. She rather want to go home. The patient is clinically stable. Shortness of breath has significantly improved. VITAL SIGNS: She is afebrile, pulse 115, respirations 16, blood pressure 122/71. LUNGS: Bilateral fair airflow. Occasional expiratory rhonchi. HEART: S1 and S2 audible. ABDOMEN: Soft, nontender. No rebound. No guarding. NEUROLOGICAL: The patient is awake, alert, oriented, communicative and ambulatory, on home O2 oxygen 2 liters via nasal cannula. LABORATORY EXAMINATION: Her PT 29.3. INR 2.52. There is no new lab available today. ASSESSMENT AND PLAN: 1. Chronic obstructive pulmonary disease exacerbation. 2. Congestive heart failure, resolved, acute on chronic, systolic. 3. Hypertension. 4. Chronic atrial fibrillation. 5. Mild renal insufficiency. PLAN: The patient is therapeutic. She will resume her medications from tomorrow. She will resume aspirin and nebulizer treatment. She will stay on Lasix and will give 10 mg of prednisone for 3 more days and then will discontinue. She will resume all her medication as prior to admission. We will follow up with Dr. Robledo to monitor her PT/INR and we will monitor her kidney function periodically. Christa Manning MD
== END 2018-09-03 15:10 | disposition home or self-care (01) | DRG 190 ==
LOC: TRCU 16:30
PROVIDERS: ADMIT Internal Medicine; ATTEND Internal Medicine
PROC: F07Z9FZ Gait Training/Functional Ambulation Treatment using Assistive, Adaptive, Supportive or Protective Equipment (ICD-10-PCS; principal; 2018-09-01)
PROC: F07Z8FZ Transfer Training Treatment using Assistive, Adaptive, Supportive or Protective Equipment (ICD-10-PCS; 2018-09-01)
PROC: F08Z2ZZ Grooming/Personal Hygiene Treatment (ICD-10-PCS; 2018-09-02)
PROC: F08Z1ZZ Dressing Techniques Treatment (ICD-10-PCS; 2018-09-02)
DX: J44.1 Chronic obstructive pulmonary disease with (acute) exacerbation (principal); I50.23 Acute on chronic systolic (congestive) heart failure; I11.0 Hypertensive heart disease with heart failure; I48.2 Chronic atrial fibrillation; D64.9 Anemia, unspecified; E87.5 Hyperkalemia; E78.5 Hyperlipidemia, unspecified; N28.9 Disorder of kidney and ureter, unspecified; M51.9 Unspecified thoracic, thoracolumbar and lumbosacral intervertebral disc disorder; R09.02 Hypoxemia; Z79.01 Long term (current) use of anticoagulants; Z87.891 Personal history of nicotine dependence; Z99.81 Dependence on supplemental oxygen